=== PATIENT | female | born 1950 | race Hispanic/Latino ===

== ENCOUNTER 2016-11-05 12:22 | Inpatient (IN) | payer OTHER, SELFPAY ==
--- NOTE | 2016-11-05 12:38 | Emergency Department Report ---
Stated Complaint: GI BLEED/WEAKNESS Time Seen by Provider: 11/05/16 12:33 - HPI History of Present Illness: PT c/o intermittent GI bleeding x 1 year. PT states she has been bleeding x 6 days. PT states she has a hx of hemorrhoids. - ROS Review of Systems: + generalized weakness - Exam Physical Exam: PT is alert and appropriate pale conjunctiva MSE screening note: Focused history and physical exam performed. Due to findings the following was ordered: labs, ekg ED Disposition for MSE Condition: Stable
[2016-11-05 13:15] LABS: Basophils % (Auto) 1.2 % (0.0-1.8); Eosinophils % (Auto) 6.8 % (0.0-4.3); Mean Corpuscular HGB Conc 33 % (30-34); Mean Corpuscular Hemoglobin 29 pg (28-32); Mean Corpuscular Volume 87 fl (79-97); Platelet Count 369 K/mm3 (140-440); Red Cell Distribution Width 14.9 % (13.2-15.2); White Blood Count 5.6 K/mm3 (4.5-11.0)
[2016-11-05 13:22] LABS: Hemoglobin 5.7 gm/dl (10.1-14.3)
[2016-11-05 13:23] LABS: Hematocrit 17.5 % (30.3-42.9)
[2016-11-05 13:25] LABS: INR 0.93 (0.87-1.13)
[2016-11-05 13:26] LABS: Albumin 3.4 g/dL (3.9-5); Albumin/Globulin Ratio 1.2 %; Alkaline Phosphatase 59 units/L (35-129); Anion Gap 18 mmol/L; Blood Urea Nitrogen 9 mg/dL (7-17); Calcium 8.9 mg/dL (8.4-10.2); Carbon Dioxide 22 mmol/L (22-30); Chloride 104.7 mmol/L (98-107); Glucose 107 mg/dL (65-100); Partial Thromboplastin Time 25.8 Sec. (24.2-36.6); Potassium 4.4 mmol/L (3.6-5.0); Sodium 140 mmol/L (137-145); Total Protein 6.3 g/dL (6.3-8.2)
[2016-11-05 13:29] LABS: Alanine Aminotransferase < 5 units/L (7-56)
--- NOTE | 2016-11-05 17:00 | Emergency Department Report ---
HPI - General Chief Complaint: GI Bleed Time Seen by Provider: 11/05/16 12:33 - HPI HPI: Room 10 The patient is a 66-year-old female presenting with chief complaint of weakness and rectal bleeding. Patient states 2 weeks she has had diffuse abdominal pain and low back pain and rectal bleeding. Patient states her pain is constant and waxes and wanes. Patient says she has a history of hemorrhoids and has pain associated with that. The patient is to taking aspirin, Aleve and Motrin as directed on the bottles for the past 2 weeks secondary to the pain. ED Past Medical Hx - Past Medical History Previous Medical History?: Yes Hx Hypertension: Yes Hx Liver Disease: Yes (Hepatitis C) Additional medical history: Hypothyroidism - Surgical History Past Surgical History?: Yes Additional Surgical History: Tonsillectomy, Hysterectomy, Tubaligation - Family History Family history: no significant - Social History Smoking Status: Never Smoker Substance Use Type: None (denies illicit drug use), Alcohol (rarely) - Medications Home Medications: Home Medications Medication Instructions Recorded Confirmed Last Taken Type Levothyroxine [Synthroid] 75 mcg PO QDAY 11/05/16 11/05/16 11/05/16 History Lisinopril [Zestril TAB] 20 mg PO QDAY 11/05/16 11/05/16 11/04/16 History Multivit-Min/FA/Lycopen/Lutein 1 tab PO QDAY 11/05/16 11/05/16 Unknown History [Adults 50+ Multivitamin Tablet] ED Review of Systems ROS: Stated complaint: GI BLEED/WEAKNESS Other details as noted in HPI Comment: All other systems reviewed and negative Constitutional: weakness Eyes: denies: eye pain, eye discharge, vision change ENT: denies: ear pain, throat pain Respiratory: denies: cough, shortness of breath, wheezing Cardiovascular: denies: chest pain, palpitations Endocrine: no symptoms reported Gastrointestinal: abdominal pain, hematochezia Genitourinary: denies: urgency, dysuria, discharge Musculoskeletal: denies: back pain, joint swelling, arthralgia Skin: denies: rash, lesions Neurological: denies: headache, weakness, paresthesias Psychiatric: denies: anxiety, depression Hematological/Lymphatic: denies: easy bleeding, easy bruising Physical Exam - Physical Exam Vital Signs: Vital Signs 11/05/16 11/05/16 12:32 15:45 Temperature 97.6 F 97.4 F L Pulse Rate 94 H 88 Respiratory 16 13 Rate Blood Pressure 98/55 Blood Pressure 121/59 [Left] O2 Sat by Pulse 100 99 Oximetry Physical Exam: GENERAL: The patient is well-developed well-nourished female standing in room not appearing to be in acute distress. [] HEENT: Normocephalic. Atraumatic. Extraocular motions are intact. Patient has moist mucous membranes. NECK: Supple. Trachea midline CHEST/LUNGS: Clear to auscultation. There is no respiratory distress noted. HEART/CARDIOVASCULAR: Regular. There is no tachycardia. There is no gallop rub or murmur. ABDOMEN: Abdomen is soft, nontender. Patient has normal bowel sounds. There is no abdominal distention. SKIN: There is no rash. There is no edema. There is no diaphoresis. NEURO: The patient is awake, alert, and oriented. The patient is cooperative. The patient has normal speech and gait. MUSCULOSKELETAL: There is no evidence of acute injury. RECTAL: External hemorrhoid present. Guaiac positive ED Course Vital Signs 11/05/16 11/05/16 12:32 15:45 Temperature 97.6 F 97.4 F L Pulse Rate 94 H 88 Respiratory 16 13 Rate Blood Pressure 98/55 Blood Pressure 121/59 [Left] O2 Sat by Pulse 100 99 Oximetry ED Medical Decision Making - Lab Data Result diagrams: 11/05/16 12:45 11/05/16 12:45 Laboratory Tests 11/05/16 11/05/16 11/05/16 12:45 12:45 12:45 WBC 5.6 RBC 2.00 L Hgb 5.7 L* Hct 17.5 L* MCV 87 MCH 29 MCHC 33 RDW 14.9 Plt Count 369 Lymph % (Auto) 20.6 [place] % (Auto) 7.5 H Eos % (Auto) 6.8 H Baso % (Auto) 1.2 Lymph # 1.2 [place] # 0.4 Eos # 0.4 Baso # 0.1 Seg Neutrophils % 63.9 Seg Neutrophils # 3.6 PT 12.4 INR 0.93 APTT 25.8 Sodium 140 Potassium 4.4 Chloride 104.7 Carbon Dioxide 22 Anion Gap 18 BUN 9 Creatinine 0.6 L Estimated GFR > 60 BUN/Creatinine Ratio 15.00 Glucose 107 H Calcium 8.9 Total Bilirubin 0.20 AST 35 ALT < 5 L Alkaline Phosphatase 59 Total Protein 6.3 Albumin 3.4 L Albumin/Globulin Ratio 1.2 Lipase TSH Free T4 Blood Type Antibody Screen Crossmatch 11/05/16 11/05/16 11/05/16 12:45 12:45 12:45 WBC RBC Hgb Hct MCV MCH MCHC RDW Plt Count Lymph % (Auto) [place] % (Auto) Eos % (Auto) Baso % (Auto) Lymph # [place] # Eos # Baso # Seg Neutrophils % Seg Neutrophils # PT INR APTT Sodium Potassium Chloride Carbon Dioxide Anion Gap BUN Creatinine Estimated GFR BUN/Creatinine Ratio Glucose Calcium Total Bilirubin AST ALT Alkaline Phosphatase Total Protein Albumin Albumin/Globulin Ratio Lipase 48 TSH 3.980 Free T4 1.23 Blood Type Antibody Screen Crossmatch 11/05/16 12:45 WBC RBC Hgb Hct MCV MCH MCHC RDW Plt Count Lymph % (Auto) [place] % (Auto) Eos % (Auto) Baso % (Auto) Lymph # [place] # Eos # Baso # Seg Neutrophils % Seg Neutrophils # PT INR APTT Sodium Potassium Chloride Carbon Dioxide Anion Gap BUN Creatinine Estimated GFR BUN/Creatinine Ratio Glucose Calcium Total Bilirubin AST ALT Alkaline Phosphatase Total Protein Albumin Albumin/Globulin Ratio Lipase TSH Free T4 Blood Type O NEGATIVE Antibody Screen Negative Crossmatch See Detail - Differential Diagnosis GI bleed Critical care attestation.: If time is entered above; I have spent that time in minutes in the direct care of this critically ill patient, excluding procedure time. ED Disposition Clinical Impression: GI bleed, Symptomatic anemia Disposition: OP ADMIT IP TO THIS HOSP Is pt being admited?: Yes Does the pt Need Aspirin: No Condition: Serious Referrals: PRIMARY CARE, [Primary Care Provider] - 3-5 Days Forms: Accompanied Note Time of Disposition: 17:01 (hospitalist paged)
--- NOTE | 2016-11-05 17:10 | Admit Criteria Form ---
Admission Criteria Documentation: GASTROINTESTINAL BLEEDING, LOWER Clinical Indications for Admission to Inpatient Care ([place]/check or initial the applicable condition/criteria) Admission is indicated for ANY ONE of the following: [ ]I. Active gross bleeding per rectum. [ ]II. Failure to control bleeding after colonoscopy [ ]III. Unstable comorbid illness (eg, hepatic, pulmonary,or cardiac) [ ]IV. Coagulopathy(eg, advanced liver disease, irreversible anticoagulation) [ ]V. Suspected or known ischemic colitis(6) [ ]. Previous aortic graft placement or known aortic aneurysm [X ]VII. Inpatient admission required rather than observation care (Also use Gastrointestinal Bleeding,Lower: Observation Care as appropriate) because of 1 or more of the following(7)( 8): [ ]a) Hemodynamic instability [ ]b) Anemia requiring inpatient admission as indicated by ALL of the following: [ ]1) Presence of significant clinical finding indicated by 1 or more of the following: [ ]A. Tachycardia for age [ ]B. Orthostatic vital sign changes [ ]C. Altered mental status [ ]D. Heart failure [ ]E. Chest pain [ ]F. Exertional dyspnea [ ]G. Other findings suggesting inadequate perfusion (e.g., peripheral or myocardial ischemia, end organ dysfunction) [ ]2) Initial (e.g., emergency department, observation care) treatment with transfusion or volume replacement is judged inappropriate (due to severity of the finding ) or has been ineffective [ ]c) Severe pain requiring acute inpatient management [ ]d) Altered mental status that is severe or persistent [ ]e) Absent bowel sounds with complete ileus [ ]f) Signs of intestinal obstruction or peritonitis [A] [ ]g) High-risklow platelet count [ ]h) Severe electrolyte abnormalities requiring inpatient care [ ]i) Acute renal failure [ ]j) High fever or infection requiring inpatient admission as indicated by 1 or more of the following (10)(11): [ ]1) Appropriate outpatient or observation care antimicrobial treatment unavailable, not effective, or not feasible [ ]2) Documented bacteremia [ ]3) Temperature greater than 104.9 degrees F (40.5 degrees C) (oral) [ ]4) Temperature greater than 103.1 degrees F (39.5 degrees C) (oral) or less than 96.8 degrees F (36 degrees C) (rectal) that does not respond to all emergency treatment measures [ ]k) Immediate inpatient surgeryneeded [ ]l) Parenteral nutrition regimen that must be implemented on inpatient basis [X ]m) Other condition, treatment or monitoring requiring inpatient admission Extended stay beyond goal length of stay may be needed for(3)(4)(24): [ ]a) Emergency surgery(25) [ ]b) Coagulation abnormalities(26) [ ]c) Recurrent or persistent bleeding, continued vital sign instability(20)(25) (27)(28) [ ]d) Active comorbidities (eg, renal insufficiency, heart failure, pre- existingliver disease)(22) The original [facility] content created by [employer] has been revised. The portions of the content which have been revised are identified through the use of italic text or in bold, and [facility] has neither reviewed nor approved the modified material. All other unmodified content is copyright [facility]. Please see references footnoted in the original [employer] [facility] edition 2017 Admission Criteria Met: Yes
[2016-11-05] MEDS: NACL 0.9% 500 ML 500 ML IV ONE ×3 (17:40→19:44)
--- NOTE | 2016-11-05 20:09 | History and Physical Report ---
History of Present Illness Date of examination: 11/05/16 Date of admission: 11/05/16 17:20 Chief complaint: Lower GI bleed for 2 days History of present illness: HPI The patient is a 66-year-old female presenting with chief complaint of weakness and rectal bleeding. Patient states 2 weeks she has had diffuse abdominal pain and low back pain and rectal bleeding. Patient states her pain is constant and waxes and wanes. Patient says she has a history of hemorrhoids and has pain associated with that. The patient is taking aspirin, Aleve and Motrin as directed on the bottles for the past 2 weeks secondary to the pain. Past Medical History Previous Medical History?: Yes Hx Hypertension: Yes Hx Liver Disease: Yes (Hepatitis C) Additional medical history: Hypothyroidism - Surgical History Past Surgical History?: Yes Additional Surgical History: Tonsillectomy, Hysterectomy, Tubaligation - Family History Family history: no significant - Social History Smoking Status: Never Smoker Substance Use Type: None (denies illicit drug use), Alcohol (rarely) - Medications Home Medications: Home Medications Medication Instructions Recorded Confirmed Last Taken Type Levothyroxine [Synthroid] 75 mcg PO QDAY 11/05/16 11/05/16 11/05/16 History Lisinopril [Zestril TAB] 20 mg PO QDAY 11/05/16 11/05/16 11/04/16 History Multivit-Min/FA/Lycopen/Lutein 1 tab PO QDAY 11/05/16 11/05/16 Unknown History [Adults 50+ Multivitamin Tablet] Review of Systems Stated complaint: GI BLEED/WEAKNESS Other details as noted in HPI Comment: All other systems reviewed and negative Constitutional: weakness Eyes: denies: eye pain, eye discharge, vision change ENT: denies: ear pain, throat pain Respiratory: denies: cough, shortness of breath, wheezing Cardiovascular: denies: chest pain, palpitations Endocrine: no symptoms reported Gastrointestinal: abdominal pain, hematochezia Genitourinary: denies: urgency, dysuria, discharge Musculoskeletal: denies: back pain, joint swelling, arthralgia Skin: denies: rash, lesions Neurological: denies: headache, weakness, paresthesias Psychiatric: denies: anxiety, depression Hematological/Lymphatic: denies: easy bleeding, easy bruising Medications and Allergies Allergies Allergy/AdvReac Type Severity Reaction Status Date / Time No Known Allergies Allergy Unverified 11/05/16 12:32 Home Medications Medication Instructions Recorded Confirmed Last Taken Type Levothyroxine [Synthroid] 75 mcg PO QDAY 11/05/16 11/05/16 11/05/16 History Lisinopril [Zestril TAB] 20 mg PO QDAY 11/05/16 11/05/16 11/04/16 History Multivit-Min/FA/Lycopen/Lutein 1 tab PO QDAY 11/05/16 11/05/16 Unknown History [Adults 50+ Multivitamin Tablet] Exam - Constitutional Vitals: Temp Pulse Resp BP Pulse Ox 98.4 F 82 18 123/74 99 11/05/16 20:02 11/05/16 20:02 11/05/16 20:02 11/05/16 20:02 11/05/16 20:02 General appearance: Present: no acute distress, well-nourished - EENT Eyes: Present: PERRL ENT: hearing intact, clear oral mucosa - Neck Neck: Present: supple, normal ROM - Respiratory Respiratory effort: normal Respiratory: bilateral: CTA - Cardiovascular Heart rate: 90 Rhythm: regular Heart Sounds: Present: S1 & S2. Absent: rub, click - Extremities Extremities: pulses symmetrical, No edema Peripheral Pulses: within normal limits - Abdominal General gastrointestinal: Present: soft, non-tender, non-distended, normal bowel sounds, other (OB positive) Female genitourinary: Present: normal - Integumentary Integumentary: Present: clear, warm, dry - Musculoskeletal Musculoskeletal: gait normal, strength equal bilaterally - Psychiatric Psychiatric: appropriate mood/affect, intact judgment & insight - Neurologic Neurologic: CNII-XII intact, moves all extremities Results - Labs CBC & Chem 7: 11/06/16 04:30 11/05/16 12:45 Labs: Laboratory Last Values WBC 5.6 K/mm3 (4.5-11.0) 11/05/16 12:45 RBC 2.00 M/mm3 (3.65-5.03) L 11/05/16 12:45 Hgb 5.7 gm/dl (10.1-14.3) L* 11/05/16 12:45 Hct 17.5 % (30.3-42.9) L* 11/05/16 12:45 MCV 87 fl (79-97) 11/05/16 12:45 MCH 29 pg (28-32) 11/05/16 12:45 MCHC 33 % (30-34) 11/05/16 12:45 RDW 14.9 % (13.2-15.2) 11/05/16 12:45 Plt Count 369 K/mm3 (140-440) 11/05/16 12:45 Lymph % (Auto) 20.6 % (13.4-35.0) 11/05/16 12:45 [place] % (Auto) 7.5 % (0.0-7.3) H 11/05/16 12:45 Eos % (Auto) 6.8 % (0.0-4.3) H 11/05/16 12:45 Baso % (Auto) 1.2 % (0.0-1.8) 11/05/16 12:45 Lymph # 1.2 K/mm3 (1.2-5.4) 11/05/16 12:45 [place] # 0.4 K/mm3 (0.0-0.8) 11/05/16 12:45 Eos # 0.4 K/mm3 (0.0-0.4) 11/05/16 12:45 Baso # 0.1 K/mm3 (0.0-0.1) 11/05/16 12:45 Seg Neutrophils % 63.9 % (40.0-70.0) 11/05/16 12:45 Seg Neutrophils # 3.6 K/mm3 (1.8-7.7) 11/05/16 12:45 PT 12.4 Sec. (12.2-14.9) 11/05/16 12:45 INR 0.93 (0.87-1.13) 11/05/16 12:45 APTT 25.8 Sec. (24.2-36.6) 11/05/16 12:45 Sodium 140 mmol/L (137-145) 11/05/16 12:45 Potassium 4.4 mmol/L (3.6-5.0) 11/05/16 12:45 Chloride 104.7 mmol/L (98-107) 11/05/16 12:45 Carbon Dioxide 22 mmol/L (22-30) 11/05/16 12:45 Anion Gap 18 mmol/L 11/05/16 12:45 BUN 9 mg/dL (7-17) 11/05/16 12:45 Creatinine 0.6 mg/dL (0.7-1.2) L 11/05/16 12:45 Estimated GFR > 60 ml/min 11/05/16 12:45 BUN/Creatinine Ratio 15.00 % 11/05/16 12:45 Glucose 107 mg/dL (65-100) H 11/05/16 12:45 Calcium 8.9 mg/dL (8.4-10.2) 11/05/16 12:45 Total Bilirubin 0.20 mg/dL (0.1-1.2) 11/05/16 12:45 AST 35 units/L (5-40) 11/05/16 12:45 ALT < 5 units/L (7-56) L 11/05/16 12:45 Alkaline Phosphatase 59 units/L (35-129) 11/05/16 12:45 Total Protein 6.3 g/dL (6.3-8.2) 11/05/16 12:45 Albumin 3.4 g/dL (3.9-5) L 11/05/16 12:45 Albumin/Globulin Ratio 1.2 % 11/05/16 12:45 Lipase 48 units/L (13-60) 11/05/16 12:45 TSH 3.980 mlU/mL (0.270-4.200) 11/05/16 12:45 Free T4 1.23 ng/dL (0.76-1.46) 11/05/16 12:45 Blood Type O NEGATIVE 11/05/16 12:45 Antibody Screen Negative 11/05/16 12:45 Crossmatch See Detail 11/05/16 12:45 Short CBC 11/05/16 11/05/16 11/06/16 Range/Units 12:45 22:34 04:30 WBC 5.6 6.8 (4.5-11.0) K/mm3 Hgb 5.7 L* 7.8 L 7.0 L (10.1-14.3) gm/dl Hct 17.5 L* 24.3 L D 20.6 L (30.3-42.9) % Plt Count 369 304 (140-440) K/mm3 BMP 11/05/16 12:45 Sodium 140 Potassium 4.4 Chloride 104.7 Carbon Dioxide 22 BUN 9 Creatinine 0.6 L Glucose 107 H Calcium 8.9 Liver Function 11/05/16 Range/Units 12:45 Total Bilirubin 0.20 (0.1-1.2) mg/dL AST 35 (5-40) units/L ALT < 5 L (7-56) units/L Alkaline Phosphatase 59 (35-129) units/L Albumin 3.4 L (3.9-5) g/dL - Imaging and Cardiology EKG: report reviewed Abdominal x-ray: report reviewed Assessment and Plan Advance Directives: Yes (full code) VTE prophylaxis?: Mechanical Plan of care discussed with patient/family: Yes - Patient Problems (1) GI bleed Current Visit: Yes Status: Acute Qualifiers: GI bleed type/associated pathology: anorectal hemorrhage Gastritis type: G Qualified Code(s): K62.5 - Hemorrhage of anus and rectum Plan to address problem: Will need colonoscopy. Probably bleeding from Hemorrhoids. Transfuse as necessary IV Protonix 40 q 12h (2) Acute blood loss anemia Current Visit: Yes Status: Acute Plan to address problem: Transfuse 2 ti 4 units of PRBC depending on H/H (3) HTN (hypertension) Current Visit: Yes Status: Chronic Qualifiers: Hypertension type: essential hypertension Qualified Code(s): I10 - Essential (primary) hypertension Plan to address problem: Will hold Lisinopril for now.Initiate catapress patch if necessary (4) Hypothyroidism Current Visit: Yes Status: Chronic Qualifiers: Hypothyroidism type: acquired Qualified Code(s): E03.9 - Hypothyroidism, unspecified Plan to address problem: Hold synthyroid for now.Resume once GI bleeding subsides (5) DVT prophylaxis Current Visit: Yes Status: Acute Plan to address problem: on SCD''s
[2016-11-05] MEDS ORDERED: MILK OF MAGNESIA PO PRN (20:11)
[2016-11-05] MEDS ORDERED: ZOFRAN IV PRN (20:11)
[2016-11-05] MEDS ORDERED: TYLENOL PO PRN (20:11)
[2016-11-05] MEDS ORDERED: DULCOLAX PR PRN (20:11)
[2016-11-05] MEDS ORDERED: NACL 0.9% 500 ML 500 ML IV NR (20:20)
[2016-11-05] MEDS: DILAUDID IV PRN (20:28)
[2016-11-05 23:09] LABS: Hematocrit 24.3 % (30.3-42.9); Hemoglobin 7.8 gm/dl (10.1-14.3)
[2016-11-06] MEDS: PROTONIX IV SCH ×3 (00:03→21:52)
[2016-11-06] MEDS: NACL 0.9% 1000 ML 1,000 ML IV SCH ×2 (00:18→18:41)
[2016-11-06] MEDS: DILAUDID IV PRN ×4 (03:53→23:54)
[2016-11-06 04:47] LABS: Basophils % (Auto) 0.9 % (0.0-1.8); Eosinophils % (Auto) 5.4 % (0.0-4.3); Hematocrit 20.6 % (30.3-42.9); Mean Corpuscular HGB Conc 34 % (30-34); Mean Corpuscular Hemoglobin 29 pg (28-32); Mean Corpuscular Volume 85 fl (79-97); Platelet Count 304 K/mm3 (140-440); Red Blood Count 2.44 M/mm3 (3.65-5.03); Red Cell Distribution Width 15.7 % (13.2-15.2); White Blood Count 6.8 K/mm3 (4.5-11.0)
[2016-11-06] MEDS ORDERED: PNEUMOVAX 23 IM ONE (12:00)
[2016-11-06] MEDS ORDERED: Fluarix Quad 2017-2018(36 MOS+) IM ONE (12:00)
[2016-11-06] MEDS ORDERED: DULCOLAX PO ONE ×2 (12:21→19:00)
--- NOTE | 2016-11-06 12:51 | Gastroenterology Consultation ---
History of Present Illness - Reason for Consult Consult date: 11/06/16 GI bleed Requesting physician: CHARLEE BANSAL - History of Present Illness Ms Izaguirre is a 66 yo wf who presents with generalized weakness, abdominal pain, and hematochezia x 2 weeks. Patient reports having intermittent episodes of self-limited bleeding for the past several months. However, symptoms were more frequent and severe the last 2 weeks. She also states she has been having hematuria, and she has difficulty differentiating when blood is coming from urine or bowel movements. She reports bloody bm's with each bm for the past couple weeks. She has chronic abdominal pain which is diffuse, unrelated to meals, and not improved with bm's. She reports back pain and diffuse muscle aches as well. Denies NSAID use. She also reportedly has a h/o chronic hep c, previously treated with interferon and ribavarin but did not achieve SVR after 6 months of treatment. She has not been followed, or treated with new anti- virals. Past History Past Medical History: other (HTN, hep c) Past Surgical History: hysterectomy Social history: no significant social history Family history: no significant family history Medications and Allergies Allergies Allergy/AdvReac Type Severity Reaction Status Date / Time No Known Allergies Allergy Unverified 11/05/16 12:32 Home Medications Medication Instructions Recorded Confirmed Last Taken Type Levothyroxine [Synthroid] 75 mcg PO QDAY 11/05/16 11/05/16 11/05/16 History Lisinopril [Zestril TAB] 20 mg PO QDAY 11/05/16 11/05/16 11/04/16 History Multivit-Min/FA/Lycopen/Lutein 1 tab PO QDAY 11/05/16 11/05/16 Unknown History [Adults 50+ Multivitamin Tablet] Active Meds: Active Medications Acetaminophen (Tylenol) 650 mg PO Q4H PRN PRN Reason: Pain MILD(1-3)/Fever >100.5/LANG Last Admin: 11/06/16 07:40 Dose: 650 mg Bisacodyl (Dulcolax) 10 mg IA QDAY PRN PRN Reason: Constipation unrelieved by MOM Hydromorphone HCl (Dilaudid) 1 mg IV Q3H PRN PRN Reason: Pain , Severe (7-10) Last Admin: 11/06/16 12:09 Dose: 1 mg Sodium Chloride (Nacl 0.9% 1000 Ml) 1,000 mls @ 100 mls/hr IV DIRECT HAI Last Admin: 11/06/16 00:18 Dose: 100 mls/hr Magnesium Hydroxide (Milk Of Magnesia) 30 ml PO Q4H PRN PRN Reason: Constipation Ondansetron HCl (Zofran) 4 mg IV Q3H PRN PRN Reason: N/V unrelieved by Reglan Last Admin: 11/05/16 20:28 Dose: 4 mg Pantoprazole Sodium (Protonix) 40 mg IV BID [facility] Last Admin: 11/06/16 12:10 Dose: 40 mg Polyethylene Glycol/Electrolytes (Golytely) 4,000 ml PO ONCE ONE Stop: 11/06/16 16:01 Review of Systems - Review of Systems All systems: negative Constitutional: fatigue, weakness, chronic pain Gastrointestinal: See HPI Musculoskeletal: muscle pain Exam - Constitutional Vital Signs: Temp Pulse Resp BP Pulse Ox 97.8 F 67 22 104/69 98 11/06/16 09:35 11/06/16 09:35 11/06/16 12:21 11/06/16 09:35 11/06/16 09:35 General appearance: no acute distress, obese - EENT Eyes: PERRL, EOM intact ENT: other (dry mucous membranes) - Respiratory Respiratory effort: normal Respiratory: bilateral: CTA - Cardiovascular Rhythm: regular Heart Sounds: Present: S1 & S2 Extremities: No edema, Full ROM - Gastrointestinal General gastrointestinal: Present: soft, tender (diffuse ttp, no rebound/ guarding), non-distended, normal bowel sounds - Integumentary Integumentary: Present: warm, dry - Neurologic Neurological: alert and oriented x3 - Psychiatric Psychiatric: appropriate mood/affect - Labs CBC & Chem 7: 11/06/16 04:30 11/05/16 12:45 Lab Results: Laboratory Results - last 24 hr 11/05/16 11/06/16 22:34 04:30 WBC 6.8 RBC 2.44 L Hgb 7.8 L 7.0 L Hct 24.3 L D 20.6 L MCV 85 MCH 29 MCHC 34 RDW 15.7 H Plt Count 304 Lymph % (Auto) 25.8 [place] % (Auto) 8.9 H Eos % (Auto) 5.4 H Baso % (Auto) 0.9 Lymph # 1.7 [place] # 0.6 Eos # 0.4 Baso # 0.1 Seg Neutrophils % 59.0 Seg Neutrophils # 4.0 Assessment and Plan 1. GI bleed - pt with hematochezia x 2 weeks, with acute anemia compared to labs from earlier this year. HD stable at this time. likely lower GI source ( normal BUN, stable vitals, description of bleeding). -clear liquid diet today, NPO at midnight -colonoscopy and EGD tomorrow (prep this evening) 2. chronic hep c -no signs of obvious cirrhosis. f/u as outpatient for treatment 3. Hematuria - per patient's history, further management per primary team 4. abdominal pain - unclear etiology, chronic per pt, lipase and liver enzymes normal. consider CT scan of abdomen
[2016-11-06] MEDS: XANAX PO SCH ×2 (15:21→21:52)
[2016-11-06] MEDS ORDERED: GOLYTELY PO ONE (16:00)
[2016-11-06 16:04] LABS: Hematocrit 26.2 % (30.3-42.9); Hemoglobin 8.6 gm/dl (10.1-14.3)
--- NOTE | 2016-11-06 17:00 | Progress Note ---
Assessment and Plan Assessment and plan: 66 years old female with two-week history of rectal bleeding and abdominal/back pain for which she was taking NSAIDs 1. GI bleed Possible secondary to hemorrhoids Started on PPI J consulted and scheduled for EGD/colonoscopy in a.m. 2. Acute blood loss anemia Hemoglobin 5.7 on admission Received units PRBCs Current hemoglobin 7 Continue to monitor H&H and transfuse as needed 3. Questionable hematuria Obtain UA 4. Hypertension Hold antihypertensives for now 5. Hypothyroidism 6. DVT prophylaxis SCDs. No pharmacological agent given GIB and severe anemia History Interval history: Being better after PRBC transfusion; scheduled for EGD/colonoscopy in a.m. Hospitalist Physical - Constitutional Vitals: Temp Pulse Resp BP Pulse Ox 97.9 F 88 22 126/89 98 11/06/16 12:11 11/06/16 12:11 11/06/16 12:21 11/06/16 12:11 11/06/16 12:11 General appearance: Present: no acute distress, obese - EENT Eyes: Present: PERRL, EOM intact - Neck Neck: Present: supple. Absent: enlarged thyroid, masses or JVD - Respiratory Respiratory effort: normal Respiratory: bilateral: CTA, negative: rales, rhonchi - Cardiovascular Rhythm: regular Heart Sounds: Present: S1 & S2. Absent: systolic murmur - Extremities Extremities: no ischemia - Abdominal General gastrointestinal: soft, non-tender, non-distended, normal bowel sounds - Psychiatric Psychiatric: cooperative - Neurologic Neurologic: CNII-XII intact, no focal deficits Results - Labs CBC & Chem 7: 11/06/16 15:12 11/05/16 12:45 Labs: Laboratory Last Values WBC 6.8 K/mm3 (4.5-11.0) 11/06/16 04:30 RBC 2.44 M/mm3 (3.65-5.03) L 11/06/16 04:30 Hgb 8.6 gm/dl (10.1-14.3) L 11/06/16 15:12 Hct 26.2 % (30.3-42.9) L 11/06/16 15:12 MCV 85 fl (79-97) 11/06/16 04:30 MCH 29 pg (28-32) 11/06/16 04:30 MCHC 34 % (30-34) 11/06/16 04:30 RDW 15.7 % (13.2-15.2) H 11/06/16 04:30 Plt Count 304 K/mm3 (140-440) 11/06/16 04:30 Lymph % (Auto) 25.8 % (13.4-35.0) 11/06/16 04:30 [place] % (Auto) 8.9 % (0.0-7.3) H 11/06/16 04:30 Eos % (Auto) 5.4 % (0.0-4.3) H 11/06/16 04:30 Baso % (Auto) 0.9 % (0.0-1.8) 11/06/16 04:30 Lymph # 1.7 K/mm3 (1.2-5.4) 11/06/16 04:30 [place] # 0.6 K/mm3 (0.0-0.8) 11/06/16 04:30 Eos # 0.4 K/mm3 (0.0-0.4) 11/06/16 04:30 Baso # 0.1 K/mm3 (0.0-0.1) 11/06/16 04:30 Seg Neutrophils % 59.0 % (40.0-70.0) 11/06/16 04:30 Seg Neutrophils # 4.0 K/mm3 (1.8-7.7) 11/06/16 04:30 PT 12.4 Sec. (12.2-14.9) 11/05/16 12:45 INR 0.93 (0.87-1.13) 11/05/16 12:45 APTT 25.8 Sec. (24.2-36.6) 11/05/16 12:45 Sodium 140 mmol/L (137-145) 11/05/16 12:45 Potassium 4.4 mmol/L (3.6-5.0) 11/05/16 12:45 Chloride 104.7 mmol/L (98-107) 11/05/16 12:45 Carbon Dioxide 22 mmol/L (22-30) 11/05/16 12:45 Anion Gap 18 mmol/L 11/05/16 12:45 BUN 9 mg/dL (7-17) 11/05/16 12:45 Creatinine 0.6 mg/dL (0.7-1.2) L 11/05/16 12:45 Estimated GFR > 60 ml/min 11/05/16 12:45 BUN/Creatinine Ratio 15.00 % 11/05/16 12:45 Glucose 107 mg/dL (65-100) H 11/05/16 12:45 Calcium 8.9 mg/dL (8.4-10.2) 11/05/16 12:45 Total Bilirubin 0.20 mg/dL (0.1-1.2) 11/05/16 12:45 AST 35 units/L (5-40) 11/05/16 12:45 ALT < 5 units/L (7-56) L 11/05/16 12:45 Alkaline Phosphatase 59 units/L (35-129) 11/05/16 12:45 Total Protein 6.3 g/dL (6.3-8.2) 11/05/16 12:45 Albumin 3.4 g/dL (3.9-5) L 11/05/16 12:45 Albumin/Globulin Ratio 1.2 % 11/05/16 12:45 Lipase 48 units/L (13-60) 11/05/16 12:45 TSH 3.980 mlU/mL (0.270-4.200) 11/05/16 12:45 Free T4 1.23 ng/dL (0.76-1.46) 11/05/16 12:45 Blood Type O NEGATIVE 11/05/16 12:45 Antibody Screen Negative 11/05/16 12:45 Crossmatch See Detail 11/05/16 12:45
[2016-11-07 05:37] LABS: Hematocrit 26.2 % (30.3-42.9); Hemoglobin 9.1 gm/dl (10.1-14.3)
[2016-11-07] MEDS: NACL 0.9% 1000 ML 1,000 ML IV SCH ×2 (05:42→10:03)
--- NOTE | 2016-11-07 08:47 | Anesthesia Day of Surgery ---
Anesthesia Day of Surgery - Day of Surgery Patient Examined: Yes Patient H&P Reviewed: Yes Patient is NPO: Yes
--- NOTE | 2016-11-07 08:48 | Anesthesia Consultation ---
Anesthesia Consult and Med Hx Date of service: 11/07/16 - Airway Anesthetic Teeth Evaluation: Poor ROM Head & Neck: Adequate Mental/Hyoid Distance: Adequate Mallampati Class: Class II Intubation Access Assessment: Probably Good - Pulmonary Exam CTA: Yes - Cardiac Exam Cardiac Exam: RRR - Pre-Operative Health Status ASA Pre-Surgery Classification: ASA3 Proposed Anesthetic Plan: MAC - Pulmonary Hx Asthma: No COPD: No Hx Pneumonia: No - Cardiovascular System Hx Hypertension: Yes - Endocrine Hx End Stage Renal Disease: No Hx Liver Disease: Yes (Hepatitis C) Hx Hypothyroidism: Yes - Additional Comments Anesthesia Medical History Comments: GI Bleed
[2016-11-07] MEDS ORDERED: DIPRIVAN 10 MG/ML IV ONE ×3 (11:13)
--- NOTE | 2016-11-07 12:12 | Post Operative Note ---
Pre-op diagnosis: hematochezia, severe anemia Post-op diagnosis: other (large prolapsed internal and external hemorrhoids, mild tics, clean based gastric ulcer in antrum) Findings: 1. EGD with biopsies: clean based linear ulcer in the antrum. No high risk bleeding stigmata. Biopsies obtained. Hiatal hernia 2. Colonoscopy: Fair prep to cecum, few scattered tics, large prolapsed internal and external hemorrhoids (likely source of bleeding) Recommendations: -hemorrhoidal suppository daily as needed -miralax/bowel regimen daily to avoid constipation/straining -surgery consult for hemorrhoidectomy given severity of anemia/hemorrhoids Procedure: 1. EGD with biopsies 2. Colonoscopy Anesthesia: MAC Surgeon: RADHA DOMINGUEZ Estimated blood loss: minimal Pathology: list (Jar A - gastric ulcer (edge) biopsies, Jar B - random gastric biopsies) Specimen disposition: to lab Condition: stable Disposition: same day
--- NOTE | 2016-11-07 12:23 | Post Anesthesia Evaluation ---
- Post Anesthesia Evaluation Patient Participated: Yes Airway Patent: Yes Stable Respiratory Function: Yes Temp > 96.8F: Yes Pain Manageable: Yes Adequeate Hydration: Yes Anesthesia Complications: No
--- NOTE | 2016-11-07 12:24 | Event Note ---
Date: 11/07/16 s/p EGD and colonoscopy (procedure notes dictated). EGD with clean based gastric ulcer without high risk bleeding stigmata. Colonoscopy with findings of mild tics, and large internal/external hemorrhoids (likely source of hematochezia and contributing to anemia along with PUD).; -f/u path -okay to restart diet -avoid nsaids -bowel regimen daily to avoid constipation/straining -hemorrhoidal suppository daily as needed -consider surgery evaluation for hemorrhoidectomy given severity of anemia/ hematochezia (given size and location, banding likely would be less effective then surgical management)
[2016-11-07] MEDS: PROTONIX IV SCH (14:48)
[2016-11-07] MEDS: PROTONIX PO SCH (14:49)
[2016-11-07] MEDS: XANAX PO SCH ×2 (14:49→22:19)
--- NOTE | 2016-11-07 16:13 | Operative Report ---
PROCEDURE: EGD. PREOPERATIVE DIAGNOSES: Severe anemia, gastrointestinal bleed, abdominal pain. POSTOPERATIVE DIAGNOSES: Clean-based gastric ulcer without high risk bleeding stigmata. ANESTHESIA: Monitored anesthesia care. ESTIMATED BLOOD LOSS: Minimal. COMPLICATIONS: No immediate complications. DESCRIPTION OF PROCEDURE: After consent was obtained, the patient was placed in left lateral decubitus position. The upper Fujinon endoscope was inserted in the patient's mouth under direct vision and advanced to the second portion of duodenum without difficulty. The patient tolerated the procedure fairly well. The views of the mucosa were good. The patient's vital signs were monitored continuously throughout the procedure. FINDINGS: Esophagus: hiatal hernia, otherwise the esophagus appeared normal. Stomach: clean-based linear ulcer in the gastric antrum. There were no signs of high risk bleeding stigmata or recent bleeding. Biopsies were taken from the edge of the ulcer. Otherwise, the stomach appeared normal. Random gastric biopsies were obtained to evaluate for H. pylori. The duodenum appeared normal. IMPRESSION: 1. Clean-based gastric ulcer. Biopsies were obtained. 2. Hiatal hernia. 3. Otherwise, unremarkable EGD. Random gastric biopsies were obtained to evaluate for H. pylori. RECOMMENDATIONS: 1. Avoid NSAID medications. 2. Follow up pathology. 3. Continue PPI daily x 2 to 3 months. Consider repeat EGD as outpatient and 6 weeks to evaluate for ulcer healing. 4. Proceed with colonoscopy. JOB# [id number] LIS/ALYSIA BRUNER
--- NOTE | 2016-11-07 16:19 | Operative Report ---
PROCEDURE: Colonoscopy. PREOPERATIVE DIAGNOSES: Hematochezia, severe anemia. POSTOPERATIVE DIAGNOSES: Large prolapsed internal and external hemorrhoids, mild diverticulosis. ANESTHESIA: Monitored anesthesia care. ESTIMATED BLOOD LOSS: None. COMPLICATIONS: No immediate complications. DESCRIPTION OF PROCEDURE: After consent was obtained, the patient was placed in left lateral decubitus position. The Fujinon colonoscope was inserted into patient's rectum under direct vision and advanced to the cecum without difficulty. The patient tolerated the procedure fairly well. The views of the mucosa were fair. The quality of prep was fair. FINDINGS: 1. There were large external hemorrhoids seen on rectal exam. 2. Large prolapsed internal hemorrhoids were seen in retroflexion view. There were few scattered diverticula in the colon, otherwise no significant findings seen. IMPRESSION: 1. Large internal and external hemorrhoids (suspect patient's source of hematochezia) 2. Mild diverticulosis. RECOMMENDATIONS: 1. High fiber diet daily. 2. Hemorrhoidal suppository daily as needed. 3. Miralax/bowel regimen daily as needed to avoid constipation, straining. 4. Recommend surgery evaluation for hemorrhoidectomy, given the severity of bleeding and severity of anemia JOB# [id number] LIS/NTS TAWANAD
--- NOTE | 2016-11-07 18:02 | Progress Note ---
Assessment and Plan Assessment and plan: 66 years old female with two-week history of rectal bleeding and abdominal/back pain for which she was taking NSAIDs 1. GI bleed Possible secondary to hemorrhoids Started on PPI J consulted and scheduled for EGD/colonoscopy==> Date: 11/07/16 s/p EGD and colonoscopy (procedure notes dictated). EGD with clean based gastric ulcer without high risk bleeding stigmata. Colonoscopy with findings of mild tics, and large internal/external hemorrhoids (likely source of hematochezia and contributing to anemia along with PUD).; -f/u path -okay to restart diet -avoid nsaids -bowel regimen daily to avoid constipation/straining -hemorrhoidal suppository daily as needed -consider surgery evaluation for hemorrhoidectomy given severity of anemia/ hematochezia (given size and location, banding likely would be less effective then surgical management) Will sign off, please call as needed or with questions. Patient should f/u in GI clinic in 1 month " per GI, Dr. Shakir Velez, whom I spoke with 2. Acute blood loss anemia Hemoglobin 5.7 on admission Received units PRBCs Current hemoglobin 7 Continue to monitor H&H and transfuse as needed 3. Questionable hematuria Obtain UA 4. Hypertension Hold antihypertensives for now 5. Hypothyroidism 6. DVT prophylaxis SCDs. No pharmacological agent given GIB and severe anemia anticipate d/c tomorrow if tolerated food without n/v and worsening pains and stable h/h History Interval history: Patient seen and examined. F/up abd pains. No cp, sob Hospitalist Physical - Constitutional Vitals: Temp Pulse Resp BP Pulse Ox 98.1 F 87 21 147/84 97 11/07/16 12:11 11/07/16 12:51 11/07/16 12:51 11/07/16 12:51 11/07/16 12:51 General appearance: Present: no acute distress, obese - EENT Eyes: Present: PERRL, EOM intact ENT: hearing intact, clear oral mucosa - Neck Neck: Present: supple, normal ROM. Absent: masses or JVD, cervical LAD - Respiratory Respiratory: bilateral: CTA - Cardiovascular Rhythm: regular Heart Sounds: Present: S1 & S2 - Extremities Extremities: no ischemia, pulses intact - Abdominal General gastrointestinal: soft, tender, non-distended, normal bowel sounds Localized gastrointestinal: tender: epigastric periumbilical - Integumentary Integumentary: Present: clear, warm, dry - Psychiatric Psychiatric: appropriate mood/affect - Neurologic Neurologic: CNII-XII intact, no focal deficits, moves all extremities - Allied Health Allied health notes reviewed: nursing Results - Labs CBC & Chem 7: 11/07/16 04:55 11/05/16 12:45 Labs: Laboratory Last Values WBC 6.8 K/mm3 (4.5-11.0) 11/06/16 04:30 RBC 2.44 M/mm3 (3.65-5.03) L 11/06/16 04:30 Hgb 9.1 gm/dl (10.1-14.3) L 11/07/16 04:55 Hct 26.2 % (30.3-42.9) L 11/07/16 04:55 MCV 85 fl (79-97) 11/06/16 04:30 MCH 29 pg (28-32) 11/06/16 04:30 MCHC 34 % (30-34) 11/06/16 04:30 RDW 15.7 % (13.2-15.2) H 11/06/16 04:30 Plt Count 304 K/mm3 (140-440) 11/06/16 04:30 Lymph % (Auto) 25.8 % (13.4-35.0) 11/06/16 04:30 [place] % (Auto) 8.9 % (0.0-7.3) H 11/06/16 04:30 Eos % (Auto) 5.4 % (0.0-4.3) H 11/06/16 04:30 Baso % (Auto) 0.9 % (0.0-1.8) 11/06/16 04:30 Lymph # 1.7 K/mm3 (1.2-5.4) 11/06/16 04:30 [place] # 0.6 K/mm3 (0.0-0.8) 11/06/16 04:30 Eos # 0.4 K/mm3 (0.0-0.4) 11/06/16 04:30 Baso # 0.1 K/mm3 (0.0-0.1) 11/06/16 04:30 Seg Neutrophils % 59.0 % (40.0-70.0) 11/06/16 04:30 Seg Neutrophils # 4.0 K/mm3 (1.8-7.7) 11/06/16 04:30 PT 12.4 Sec. (12.2-14.9) 11/05/16 12:45 INR 0.93 (0.87-1.13) 11/05/16 12:45 APTT 25.8 Sec. (24.2-36.6) 11/05/16 12:45 Sodium 140 mmol/L (137-145) 11/05/16 12:45 Potassium 4.4 mmol/L (3.6-5.0) 11/05/16 12:45 Chloride 104.7 mmol/L (98-107) 11/05/16 12:45 Carbon Dioxide 22 mmol/L (22-30) 11/05/16 12:45 Anion Gap 18 mmol/L 11/05/16 12:45 BUN 9 mg/dL (7-17) 11/05/16 12:45 Creatinine 0.6 mg/dL (0.7-1.2) L 11/05/16 12:45 Estimated GFR > 60 ml/min 11/05/16 12:45 BUN/Creatinine Ratio 15.00 % 11/05/16 12:45 Glucose 107 mg/dL (65-100) H 11/05/16 12:45 Calcium 8.9 mg/dL (8.4-10.2) 11/05/16 12:45 Total Bilirubin 0.20 mg/dL (0.1-1.2) 11/05/16 12:45 AST 35 units/L (5-40) 11/05/16 12:45 ALT < 5 units/L (7-56) L 11/05/16 12:45 Alkaline Phosphatase 59 units/L (35-129) 11/05/16 12:45 Total Protein 6.3 g/dL (6.3-8.2) 11/05/16 12:45 Albumin 3.4 g/dL (3.9-5) L 11/05/16 12:45 Albumin/Globulin Ratio 1.2 % 11/05/16 12:45 Lipase 48 units/L (13-60) 11/05/16 12:45 TSH 3.980 mlU/mL (0.270-4.200) 11/05/16 12:45 Free T4 1.23 ng/dL (0.76-1.46) 11/05/16 12:45 Blood Type O NEGATIVE 11/05/16 12:45 Antibody Screen Negative 11/05/16 12:45 Crossmatch See Detail 11/05/16 12:45
[2016-11-07] MEDS: DILAUDID IV PRN (22:19)
[2016-11-08] MEDS ORDERED: WATER FOR IRRIG STERILE IR ONE (06:08)
[2016-11-08 06:09] LABS: Hematocrit 26.4 % (30.3-42.9); Hemoglobin 8.9 gm/dl (10.1-14.3); Mean Corpuscular HGB Conc 34 % (30-34); Mean Corpuscular Hemoglobin 29 pg (28-32); Mean Corpuscular Volume 85 fl (79-97); Platelet Count 283 K/mm3 (140-440); Red Blood Count 3.09 M/mm3 (3.65-5.03); Red Cell Distribution Width 15.7 % (13.2-15.2)
[2016-11-08 06:17] LABS: Anion Gap 17 mmol/L; Blood Urea Nitrogen 6 mg/dL (7-17); Calcium 8.3 mg/dL (8.4-10.2); Carbon Dioxide 22 mmol/L (22-30); Chloride 105.7 mmol/L (98-107); Glucose 115 mg/dL (65-100); Potassium 3.9 mmol/L (3.6-5.0); Sodium 141 mmol/L (137-145)
[2016-11-08] MEDS: PROTONIX PO SCH (09:28)
[2016-11-08] MEDS: XANAX PO SCH (09:28)
[2016-11-08] MEDS: DILAUDID IV PRN (09:46)
--- NOTE | 2016-11-08 14:44 | Discharge Summary ---
Providers - Providers Date of Admission: 11/05/16 17:20 Date of discharge: 11/08/16 Attending physician: TRAVIS HUMPHREY 11/05/16 20:17 Consult to Physician [CONS] Routine Consulting Provider: CARMELO VIVEROS Reason For Exam: GI bleed Place consult to:: gi Notified:: donell Was contact made?: Yes Time called:: 09:05 Comment:: she was on floor Primary care physician: MANAGER TRAINING Hospitalization Condition: Stable Hospital course: 66 years old female with two-week history of rectal bleeding and abdominal/back pain for which she was taking NSAIDs 1. GI bleed Possible secondary to hemorrhoids Started on PPI J consulted and scheduled for EGD/colonoscopy==> Date: 11/07/16 s/p EGD and colonoscopy (procedure notes dictated). EGD with clean based gastric ulcer without high risk bleeding stigmata. Colonoscopy with findings of mild tics, and large internal/external hemorrhoids (likely source of hematochezia and contributing to anemia along with PUD).; -f/u path -okay to restart diet -avoid nsaids -bowel regimen daily to avoid constipation/straining -hemorrhoidal suppository daily as needed -consider surgery evaluation for hemorrhoidectomy given severity of anemia/ hematochezia (given size and location, banding likely would be less effective then surgical management) Will sign off, please call as needed or with questions. Patient should f/u in GI clinic in 1 month " per GI, Dr. Shakir Velez, whom I spoke with 2. Acute blood loss anemia Hemoglobin 5.7 on admission Received units PRBCs Current hemoglobin 7 Continue to monitor H&H and transfuse as needed 3. Questionable hematuria Obtain UA 4. Hypertension Hold antihypertensives for now 5. Hypothyroidism 6. DVT prophylaxis SCDs. No pharmacological agent given GIB and severe anemia anticipate d/c tomorrow if tolerated food without n/v and worsening pains and stable h/h Disposition: [place]-01 TO HOME OR SELFCARE Time spent for discharge: 35 minutes Core Measure Documentation - Palliative Care Palliative Care/ Comfort Measures: Not Applicable - Core Measures Any of the following diagnoses?: none - VTE Discharge Requirements Deep Vein Thrombosis/Pulmonary Embolism Present on Admission: No Has pt received <5 days of overlap therapy or INR<2.0: No Anticoagulant overlap therapy prescribed at discharge: No Contraindication No Overlap Therapy order at DC: Not Indicated Exam - Physical Exam Narrative exam: GEN: WDWN, NAD, AWAKE, ALERT, ORIENTATED HEENT: NCAT, EOMI, PERRL, OP Clear NECK: supple, no adenopathy, no thyromegaly, no JVD CVS/HEART: RRR, NORMAL S1S2, NO JVD, pulses present bilaterally CHEST/LUNGS: CTA B, Symmetrical chest expansion, good air entry bilaterally GI/Abdomen: soft, NTND, good bowel sounds, no guarding or rebound /Bladder: no suprapubic tenderness, no CVA or paraspinal tenderness EXT/Skin: no c/c/e, no significant edema or obvious rash MSK: FROM x 4 Neuro: CN 2-12 grossly intact, no new focal deficits Psych: calm - Constitutional Vitals: Temp Pulse Resp BP Pulse Ox 98.4 F 88 20 110/65 94 11/08/16 12:13 11/08/16 12:13 11/08/16 12:13 11/08/16 12:13 11/08/16 08:08 Plan Activity: other (no strenous activity until cleared by pcp) Diet: advance as tolerated Follow up with: PRIMARY CARE, [Primary Care Provider] - 3-5 Days Forms: Accompanied Note Prescriptions: Bisacodyl [Dulcolax suppos] [address] QDAY PRN #7 supp.rect PRN Reason: Constipation Pantoprazole [Protonix TAB] 40 mg PO DAILY #30 tablet Polyethylene Glycol 3350 [Miralax 3350] 17 gm PO QDAY #30 day
[2016-11-08 17:26] VITALS: BP 137/75
== END 2016-11-08 17:10 | disposition home or self-care (01) | DRG 394 ==
LOC: ED 12:22 → 4A 17:20
PROVIDERS: ADMIT Internal Medicine; ATTEND Internal Medicine
PROC: 30233N1 Transfusion of Nonautologous Red Blood Cells into Peripheral Vein, Percutaneous Approach (ICD-10-PCS; 2016-11-05)
PROC: 3E0234Z Introduction of Serum, Toxoid and Vaccine into Muscle, Percutaneous Approach (ICD-10-PCS; 2016-11-06)
PROC: 0DB68ZX Excision of Stomach, Via Natural or Artificial Opening Endoscopic, Diagnostic (ICD-10-PCS; principal; 2016-11-07)
PROC: 0DJD8ZZ Inspection of Lower Intestinal Tract, Via Natural or Artificial Opening Endoscopic (ICD-10-PCS; 2016-11-07)
DX: K64.8 Other hemorrhoids (principal); D62 Acute posthemorrhagic anemia; K27.9 Peptic ulcer, site unspecified, unspecified as acute or chronic, without hemorrhage or perforation; R31.9 Hematuria, unspecified; I10 Essential (primary) hypertension; E03.9 Hypothyroidism, unspecified; B19.20 Unspecified viral hepatitis C without hepatic coma; K44.9 Diaphragmatic hernia without obstruction or gangrene; K57.90 Diverticulosis of intestine, part unspecified, without perforation or abscess without bleeding; Z90.710 Acquired absence of both cervix and uterus; Z98.51 Tubal ligation status; Z23 Encounter for immunization
CPT/HCPCS: 36415; 80048; 80053; 82271; 83690; 84439; 84443; 85014; 85018; 85025; 85027; 85610; 85730; 86850; 86900; 86901; 86920; 88305; 88342; 90686; 90732; 93005; 93010; 96374; 99285; C9113; J1170; J2405; J2704; J7030; J7040; P9016